=== PATIENT | female | born 1980 | race American Indian/Alaskan Native ===

== ENCOUNTER 2020-12-14 10:43 | Emergency (ER) | payer SELFPAY ==
--- NOTE | 2020-12-14 13:00 | Emergency Department Report ---
ED General Adult HPI - General Chief complaint: Extremity Problem,Nontraumatic Stated complaint: RT KNEE PAIN Time Seen by Provider: 12/14/20 12:02 Source: patient Mode of arrival: Ambulatory Limitations: No Limitations - History of Present Illness Initial comments: 40-year-old -[place] female patient presents with complaints of intermittent bilateral knee pain and swelling x2 months. Patient states the swelling and pain only occur after she works on her feet for extended periods of time. She states on the days she does not work, there is no swelling or pain. She denies any difficulty moving her knee, numbness/tingling/weakness in her limbs, redness or warmth, or fever/chills/sweats. When her pain does occur, she rates it as a 6/10 in severity. OTC medications do help with the pain per patient. Severity scale (0 -10): 6 - Related Data Allergies Allergy/AdvReac Type Severity Reaction Status Date / Time No Known Allergies Allergy Unverified 12/14/20 11:01 ED Review of Systems ROS: Stated complaint: RT KNEE PAIN Other details as noted in HPI Constitutional: denies: chills, diaphoresis, fever, malaise, weakness Musculoskeletal: joint swelling, arthralgia Skin: denies: change in color Neurological: denies: numbness, paresthesias, abnormal gait ED Past Medical Hx - Past Medical History Previous Medical History?: No - Surgical History Additional Surgical History: cataract surgery ED Physical Exam - General Limitations: No Limitations General appearance: alert, in no apparent distress - Head Head exam: Present: atraumatic, normocephalic - Eye Eye exam: Present: normal appearance - Respiratory Respiratory exam: Absent: respiratory distress - Cardiovascular Cardiovascular Exam: Present: regular rate - Expanded Lower Extremity Exam Right Knee exam: Present: normal inspection, full ROM. Absent: tenderness, swelling, ecchymosis, deformity, erythema Neuro vascular tendon exam: Present: no vascular compromise Gait: Positive: observed and normal Left Knee exam: Present: normal inspection, full ROM, tenderness, swelling. Absent: ecchymosis, deformity, crepidus, erythema Neuro vascular tendon exam: Present: no vascular compromise - Neurological Exam Neurological exam: Present: alert, oriented X3, normal gait - Psychiatric Psychiatric exam: Present: normal affect, normal mood - Skin Skin exam: Present: warm ED Course Vital Signs 12/14/20 11:04 Temperature 98.3 F Pulse Rate 74 Respiratory 18 Rate Blood Pressure 100/71 [Left] O2 Sat by Pulse 100 Oximetry ED Medical Decision Making - Medical Decision Making 40-year-old -[place] female patient presents with complaints of intermittent bilateral knee pain and swelling x2 months. Patient states the swelling and pain only occur after she works on her feet for extended periods of time. She states on the days she does not work, there is no swelling or pain. She denies any difficulty moving her knee, numbness/tingling/weakness in her limbs, redness or warmth, or fever/chills/sweats. When her pain does occur, she rates it as a 6/10 in severity. OTC medications do help with the pain per patient. No tenderness, swelling, warmth/erythema, or decreased range of motion of the knees noted bilaterally on exam. Recommend patient follows up with primary care. She was provided with Morris wrap to use as needed for the swelling. She is well-appearing, her vitals are normal, she is stable for discharge home. Discussed strict return precautions in detail with patient verbalizes understanding. Critical care attestation.: If time is entered above; I have spent that time in minutes in the direct care of this critically ill patient, excluding procedure time. ED Disposition Clinical Impression: Bilateral knee pain Disposition: - TO HOME OR SELFCARE Is pt being admited?: No Condition: Stable Instructions: Acute Knee Pain, Adult Referrals: [facility] [Provider Group] - 3-5 Days
== END 2020-12-14 13:27 | disposition home or self-care (01) ==
LOC: ED 10:43
CPT/HCPCS: 99281